=== PATIENT | female | born 1980 | race Two or more races ===

== ENCOUNTER 2021-08-26 10:24 | Emergency (ER) | payer SELFPAY ==
[~2021-08-26] VITALS: Ht 160 cm; Wt 66.7 kg
[2021-08-26 11:35] LABS: Basophils # (auto) 0 10 ^3/uL (0-0.2); Basophils % (auto) 0.5 % (0.0-2.0); Eosinophils # (auto) 0 10 ^3/uL (0-0.8); Neutrophils # (auto) 6.1 10 ^3/uL (1.6-8.6)
[2021-08-26 11:40] LABS: Eosinophils % (auto) 0.3 % (0.0-7.0); Hemoglobin 13.1 g/dL (12.2-16.2); Lymphocytes % (auto) 12.2 % (10.0-50.0); Mean Corpuscular Hgb Conc. 31.9 g/dL (32.0-36.0); Mean Corpuscular Volume 81.2 fL (80.0-100.0); Monocytes # (auto) 0.8 10 ^3/uL (0-1.3); Monocytes % (auto) 9.6 % (0.0-12.0); Neutrophils % (auto) 77.4 % (37.0-80.0); Red Blood Cells 5.05 10^6/uL (4.0-5.20); White Blood Cell 7.9 10^3/uL (4.4-10.8)
[2021-08-26 11:57] LABS: Albumin 3.7 g/dL (3.4-5.0); Calcium 8.8 mg/dL (8.5-10.1)
[2021-08-26 11:59] LABS: BUN/Creatinine Ratio 6.8
[2021-08-26 12:02] LABS: Total Protein 8.6 g/dL (6.4-8.2)
[2021-08-26 12:25] LABS: Potassium 2.9 mmol/L (3.5-5.1)
[2021-08-26] MEDS: cloNIDine HCL 0.1 MG TAB PO ONE (12:31)
[2021-08-26] MEDS: ASPirin 81 mg TAB PO ONE (12:31)
[2021-08-26] MEDS: POTASSIUM CHL 20 Meq TABLET PO ONE (12:32)
[2021-08-26] MEDS ORDERED: POTA10TA51 PO (12:44)
[2021-08-26] MEDS ORDERED: LOSA25TA38 PO (12:47)
[2021-08-26 15:15] VITALS: BP 148/94
== END 2021-08-26 15:14 | disposition home or self-care (01) ==
LOC: ER 10:24
DX: R07.89 Other chest pain (principal); E87.6 Hypokalemia; F41.9 Anxiety disorder, unspecified; I10 Essential (primary) hypertension; Z98.51 Tubal ligation status
CPT/HCPCS: 36415; 71046; 73120; 80053; 84484; 85025; 93005

== ENCOUNTER 2023-12-31 16:11 | Emergency (ER) | payer MEDICAID, OTHER ==
[~2023-12-31] VITALS: Ht 154.9 cm; Wt 68.4 kg
[~2023-12-31 16:11] MED LIST: LOSA-533 PO; POTA-36 PO
[2023-12-31] MEDS: MORPHINE SULFATE 4 MG/ML SYR/VIAL IV ONE (17:00)
[2023-12-31] MEDS: ONDANSETRON HCL 4 MG/2 ML VIAL IV ONE (17:00)
[2023-12-31] MEDS: SODIUM CHLORIDE 0.9% 500 ML IVB ONE (17:00)
[2023-12-31 18:22] LABS: Urine Amorphous Crystal FEW /hpf (None Seen); Urine Bacteria FEW /hpf (None Seen); Urine Blood 1+ /uL (Negative); Urine Clarity Ex.Turbid (Clear); Urine Color Light-Orange (Yellow); Urine Mucus FEW (None Seen); Urine Protein, UAD 3+ (Negative); Urine Specific Gravity 1.022 (1.001-1.035); Urine Urobilinogen 2 mg/dL (Negative); Urine WBC 201 /hpf (0 - 5); Urine WBC Clumps PRESENT /hpf (None Seen)
[2023-12-31 18:30] VITALS: PULSE 107; RESP 20; O2SAT 96
[2023-12-31 18:45] LABS: Basophils # (auto) 0 10 ^3/uL (0-0.2); Eosinophils # (auto) 0 10 ^3/uL (0-0.8); Eosinophils % (auto) 0.1 % (0.0-7.0); Hematocrit 31.6 % (36.0-46.0); Hemoglobin 10.3 g/dL (12.2-16.2); Lymphocytes # (auto) 0.2 10 ^3/uL (0.4-5.4); Lymphocytes % (auto) 1.5 % (10.0-50.0); Mean Corpuscular Hemoglobin 26.6 pg (28.0-32.0); Mean Corpuscular Hgb Conc. 32.6 g/dL (32.0-36.0); Mean Corpuscular Volume 81.5 fL (80.0-100.0); Monocytes % (auto) 9.1 % (0.0-12.0); Neutrophils # (auto) 10.2 10 ^3/uL (1.6-8.6); Neutrophils % (auto) 89.3 % (37.0-80.0); Platelet Count (auto) 143 10^3/uL (140-450); Red Blood Cells 3.87 10^6/uL (4.0-5.20); Red Cell Distribution Width 17.2 % (11.8-14.3); White Blood Cell 11.4 10^3/uL (4.4-10.8)
[2023-12-31 19:02] LABS: Alanine Aminotransferase 26 U/L (7-40); Albumin 3.1 g/dL (3.2-4.8); Alkaline Phosphatase 65 U/L (46-116); Anion Gap 7 (5-15); Aspartate Aminotransferase 26 U/L (13-40); BUN/Creatinine Ratio 8.7 (10.0-20.0); Bilirubin, Total 0.5 mg/dL (0.2-1.0); Blood Urea Nitrogen 17 mg/dL (9-23); Carbon Dioxide 22 mmol/L (20-31); Chloride 102 mmol/L (98-107); Glucose 90 mg/dL (74-106); Lipase 19 U/L (12-53); Potassium 3.1 mmol/L (3.5-5.1); Sodium 131 mmol/L (136-145); Total Protein 5.8 g/dL (5.7-8.2)
[2023-12-31 19:18] VITALS: TEMP 99.6
[2023-12-31] MEDS ORDERED: CIPR-173 PO (19:26)
[2023-12-31] MEDS ORDERED: HYDR-4902 PO (19:26)
[2023-12-31] MEDS: cefTRIAXone 1GM/50ML D5W 50 ML IV ONE (19:36)
[2023-12-31 20:00] VITALS: BP 102/69; PULSE 109; RESP 21; O2SAT 92
== END 2023-12-31 20:27 | disposition home or self-care (01) ==
LOC: ER 16:11
DX: N39.0 Urinary tract infection, site not specified (principal); I10 Essential (primary) hypertension; Z79.899 Other long term (current) drug therapy; Z98.51 Tubal ligation status
CPT/HCPCS: 36415; 74176; 80053; 81001; 83690; 85025; 96365; 96375; 99285; J0696; J2270; J2405; J7040